=== PATIENT | male | born 1970 | race African-American/Black ===

== ENCOUNTER 2017-10-31 16:04 | Emergency (ER) | payer BC ==
[2017-10-31] MEDS ORDERED: NA CHLORIDE 0.9% 1,000 ML ONE (16:27)
[2017-10-31 16:44] LABS: Protime INR 0.94
[2017-10-31 16:45] LABS: Absolute Lymphocytes (CBC) 0.5 K/uL (0.7-4.9); Absolute Monocytes 0.4 K/uL (0.1-1.3); Absolute Neutrophil 7.2 K/uL (1.8-8.0); Basophils % 0.3 % (0-1.3); Eosinophils % 0.4 % (0-4.4); Hematocrit 46.5 % (39.6-49.0); Lymphocytes % 5.9 % (15.3-44.8); MCH 33.3 pg (27.0-35.0); MCV 98.9 fL (80-100); MPV 10.3 fL (7.6-11.3); Monocytes % 4.5 % (3.3-12.3)
--- NOTE | 2017-10-31 16:54 | RAD REPORT ---
EXAM DESCRIPTION: CT - Head Brain Wo Cont - 10/31/2017 4:46 pm CLINICAL HISTORY: Syncope COMPARISON: None. TECHNIQUE: Axial 5 mm thick images of the head were obtained without IV contrast. All CT scans are performed using dose optimization technique as appropriate and may include automated exposure control or mA/KV adjustment according to patient size. FINDINGS: No intracranial hemorrhage, mass, edema or shift of mid-line structures. No acute infarcti on changes seen. No abnormal extra-axial fluid collections. Ventricles are normal. Mastoid air cells and visualized portions of the paranasal sinuses are clear. No acute bony findings. IMPRESSION: Negative non-contrast CT head examination.
--- NOTE | 2017-10-31 16:55 | RAD REPORT ---
EXAM DESCRIPTION: RAD - Chest Single View - 10/31/2017 4:44 pm CLINICAL HISTORY: Syncope, fall, chest injury COMPARISON: None. TECHNIQUE: AP portable chest image was obtained 1633 hours . FINDINGS: Lungs are clear. No cardiomegaly or other suspicious heart finding. Vasculature is normal. Trachea is midline. No measurable pleural effusion and no pneumothorax. No gross bony abnormality se en. No acute aortic findings suspected. IMPRESSION: No acute cardiopulmonary process.
[2017-10-31 17:00] LABS: Albumin 4.4 g/dL (3.2-5.5); Bilirubin Direct 0.3 mg/dL (0-0.2); Bilirubin Total 2.7 mg/dL (0.3-1.2); Magnesium 1.6 mg/dL (1.8-2.5); Protein, Total 7.1 g/dL (6.0-8.3)
[2017-10-31] MEDS ORDERED: MAGNESIUM SULFATE 1 gm IVPB 1 GM/100 ML BAG IV ONE (17:06)
--- NOTE | 2017-10-31 17:47 | EDPHYS ---
Physician Documentation [facility] Name: Jermaine Price Age: 47 yrs Sex: Male : 1970 Arrival Date: 10/31/2017 Time: 16:05 Bed 4 Private MD: ED Physician Rogelio Wellington HPI: 10/31 16:57 This 47 yrs old Male presents to ER via Ambulatory with complaints of Syncope. jr8 16:57 The patient has experienced syncope, collapsed. Onset: The symptoms/episode jr8 began/occurred acutely, today. Duration: This was a single episode. Context: the episode(s) was witnessed, by a friend, occurred hospital, occurred while the patient was standing, Just prior to the episode the patient experienced lightheadedness. Associated injury: The patient did not suffer any apparent associated injury. Associated signs and symptoms: The patient has no apparent associated signs or symptoms. Current symptoms: Currently, the patient is not experiencing any symptoms, the patient feels back to baseline, no decreased level of consciousness, no confusion, no dysphasia, no headache, no paralysis, no visual changes. The patient has not experienced similar symptoms in the past. The patient has not recently seen a physician. Patient stated that he was shadowing another Physician that the hospital today. Stated that while standing started to feel lightheaded. Was going to reach for door and collapsed. Stated that he fell backward per staff and hit head. Patient denied chest pain, shortness of breath, numbness, tingling, or weakness prior to or after episode. Feels back to baseline now . Historical: - Allergies: 16:09 NKA; iw - Home Meds: 16:09 None [Active]; iw - PMHx: 16:09 None; iw - PSHx: 16:09 None; iw - Immunization history:: Adult Immunizations up to date. - Social history:: Smoking status: Patient/guardian denies using tobacco, never smoked. ROS: 16:57 Eyes: Negative for injury, pain, redness, and discharge, ENT: Negative for injury, jr8 pain, and discharge, Neck: Negative for injury, pain, and swelling, Cardiovascular: Negative for chest pain, palpitations, and edema, Respiratory: Negative for shortness of breath, cough, wheezing, and pleuritic chest pain, Abdomen/GI: Negative for abdominal pain, nausea, vomiting, diarrhea, and constipation, Back: Negative for injury and pain, MS/Extremity: Negative for injury and deformity, Skin: Negative for injury, rash, and discoloration. 16:57 Neuro: Positive for syncope. Exam: 16:57 Head/Face: Normocephalic, atraumatic. Eyes: Pupils equal round and reactive to light, jr8 extra-ocular motions intact. Lids and lashes normal. Conjunctiva and sclera are non-icteric and not injected. Cornea within normal limits. Periorbital areas with no swelling, redness, or edema. ENT: Nares patent. No nasal discharge, no septal abnormalities noted. Tympanic membranes are normal and external auditory canals are clear. Oropharynx with no redness, swelling, or masses, exudates, or evidence of obstruction, uvula midline. Mucous membranes moist. Neck: Trachea midline, no thyromegaly or masses palpated, and no cervical lymphadenopathy. Supple, full range of motion without nuchal rigidity, or vertebral point tenderness. No Meningismus. Cardiovascular: Regular rate and rhythm with a normal S1 and S2. No gallops, murmurs, or rubs. Normal PMI, no JVD. No pulse deficits. Respiratory: Lungs have equal breath sounds bilaterally, clear to auscultation and percussion. No rales, rhonchi or wheezes noted. No increased work of breathing, no retractions or nasal flaring. Abdomen/GI: Soft, non-tender, with normal bowel sounds. No distension or tympany. No guarding or rebound. No evidence of tenderness throughout. Back: No spinal tenderness. No costovertebral tenderness. Full range of motion. Skin: Warm, dry with normal turgor. Normal color with no rashes, no lesions, and no evidence of cellulitis. MS/ Extremity: Pulses equal, no cyanosis. Neurovascular intact. Full, normal range of motion. Neuro: Awake and alert, GCS 15, oriented to person, place, time, and situation. Cranial nerves II-XII grossly intact. Motor strength 5/5 in all extremities. Sensory grossly intact. Cerebellar exam normal. Normal gait. Vital Signs: 16:14 BP 127 / 86; Pulse 55; Resp 14; Temp 98.8(A); Pulse Ox 100% on R/A; ae1 17:05 BP 132 / 87; Pulse 64; Resp 15; Pulse Ox 100% on R/A; ae1 17:09 BP 131 / 91 Supine; Pulse 63; Resp 18; Pulse Ox 99% on R/A; ae1 17:11 BP 131 / 89 Sitting; Pulse 76; Resp 20; Pulse Ox 99% on R/A; ae1 17:13 BP 131 / 94; Pulse 78; Resp 20; Pulse Ox 96% on R/A; ae1 17:47 BP 116 / 81; Pulse 61; Resp 15; Pulse Ox 100% on R/A; ae1 MDM: 16:08 Patient medically screened. jr8 17:45 Data reviewed: vital signs, nurses notes, lab test result(s), EKG, radiologic studies, jr8 CT scan, plain films, and as a result, I will discharge patient. Data interpreted: Pulse oximetry: on room air is 96 %. Interpretation: normal. Counseling: I had a detailed discussion with the patient and/or guardian regarding: the historical points, exam findings, and any diagnostic results supporting the discharge/admit diagnosis, lab results, radiology results, the need for outpatient follow up, a communications and signals supervisor, a family practitioner, to return to the emergency department if symptoms worsen or persist or if there are any questions or concerns that arise at home. ED course: Patient has remained asymptomatic while in ED. Feels back to baseline. No significant abnormalities noted to cause syncope. Mild LVH noted on EKG which I told patient can be normal variant but that cardiology should see him and complete Echocardiogram to r/o. Patient pleased and will follow up . 17:46 Differential Diagnosis: cardiac arrhythmia, cerebrovascular accident, drug effect, jr8 emotional response, idiopathic syncope, seizure, transient ischemic attack, vasovagal episode. 10/31 16:23 Order name: Basic Metabolic Panel; Complete Time: 17:02 10/31 16:23 Order name: BNP; Complete Time: 17:05 10/31 16:23 Order name: CBC with Diff; Complete Time: 18:21 10/31 16:23 Order name: CPK; Complete Time: 17:02 10/31 16:23 Order name: LFT's; Complete Time: 17:02 10/31 16:23 Order name: Magnesium; Complete Time: 17:02 10/31 16:23 Order name: PT-INR; Complete Time: 16:49 10/31 16:23 Order name: Troponin (emerg Dept Use Only); Complete Time: 17:02 8 10/31 16:23 Order name: XRAY Chest (1 view); Complete Time: 16:57 10/31 16:23 Order name: EKG; Complete Time: 16:24 8 10/31 16:23 Order name: CT Head Brain wo Cont; Complete Time: 16:57 jr8 10/31 18:18 Order name: CBC Smear Scan; Complete Time: 18:21 EDMS 10/31 16:23 Order name: Cardiac monitoring; Complete Time: 16:32 10/31 16:23 Order name: EKG - Nurse/Tech; Complete Time: 16:32 10/31 16:23 Order name: IV Saline Lock; Complete Time: 16:32 10/31 16:23 Order name: Labs collected and sent; Complete Time: 16:32 10/31 16:23 Order name: O2 Per Protocol; Complete Time: 16:32 10/31 16:23 Order name: O2 Sat Monitoring; Complete Time: 16:32 10/31 16:23 Order name: Urine Dipstick-Ancillary (obtain specimen) 10/31 16:23 Order name: Orthostatics; Complete Time: 18:24 Administered Medications: 01:15 Drug: Magnesium Sulfate 1 grams Route: IVPB; Infused Over: 1 hrs; Site: right ae1 antecubital; 18:24 Follow up: IV Status: Completed infusion ae1 16:28 Drug: NS 0.9% 1000 ml Route: IV; Rate: 1000 ml; Site: right antecubital; ae1 18:24 Follow up: IV Status: Completed infusion ae1 Point of Care Testing: Blood Glucose: 16:18 Blood Glucose: 182 mg/dL; ae1 Ranges: Critical Glucose Levels:Adult <50 mg/dl or >400 mg/dl <40 mg/dl or >180 mg/dl Disposition: 18:26 Co-signature as Attending Physician, Rogelio Wellington MD I agree with the assessment and kdr plan of care. Disposition: 10/31/17 17:46 Discharged to Home. Impression: Syncope and collapse. - Condition is Stable. - Discharge Instructions: Syncope. - Medication Reconciliation Form, Thank You Letter, Antibiotic Education, Prescription Opioid Use form. - Follow up: Private Physician; When: 2 - 3 days; Reason: Recheck today's complaints, Continuance of care, Re-evaluation by your physician. - Problem is new. - Symptoms are resolved. Signatures: Dispatcher [employer] Rogelio Snaabria MD MD kdr Rose Guardado, RN RN iw Stuart Funez PA PA jr8 Francisco Boone RN RN ae1
--- NOTE | 2017-10-31 17:47 | ER ---
Nurse's Notes [facility] Name: Jermaine Price Age: 47 yrs Sex: Male : 1970 Arrival Date: 10/31/2017 Time: 16:05 Bed 4 Private MD: Diagnosis: Syncope and collapse Presentation: 10/31 16:05 Presenting complaint: Patient states: was doing rounds with Dr. Bello upstairs, felt iw like he was going to pass out and then fell to floor, hitting head, was witnessed, pt came around quickly, VSS, pt states he has not been drinking much water over past 24 hours. Transition of care: patient was not received from another setting of care. Onset of symptoms was October 31, 2017. Care prior to arrival: None. 16:05 Method Of Arrival: Ambulatory iw 16:05 Acuity: DUNG 3 iw Historical: - Allergies: 16:09 NKA; iw - Home Meds: 16:09 None [Active]; iw - PMHx: 16:09 None; iw - PSHx: 16:09 None; iw - Immunization history:: Adult Immunizations up to date. - Social history:: Smoking status: Patient/guardian denies using tobacco, never smoked. Screenin:33 Abuse screen: Denies threats or abuse. Nutritional screening: No deficits noted. ae1 Tuberculosis screening: No symptoms or risk factors identified. Fall Risk Fall in past 12 months (25 points). No secondary diagnosis (0 pts). IV access (20 points). Ambulatory Aid- None/Bed Rest/Nurse Assist (0 pts). Gait- Normal/Bed Rest/Wheelchair (0 pts) Mental Status- Oriented to own ability (0 pts). Assessment: 16:37 General: Appears in no apparent distress. comfortable, well groomed, Behavior is calm, ae1 cooperative. Pain: Denies pain. Neuro: Level of Consciousness is awake, alert, obeys commands, Oriented to person, place, time, situation. Cardiovascular: Heart tones S1 S2 present Patient's skin is warm and dry. Rhythm is regular. Respiratory: Airway is patent Respiratory effort is even, unlabored, Respiratory pattern is regular, symmetrical, Breath sounds are clear bilaterally. GI: No signs and/or symptoms were reported involving the gastrointestinal system. : No signs and/or symptoms were reported regarding the genitourinary system. Reports He feels "dehydrated", states he knows how much he really drinks and has not been drinking enough fluid. EENT: No signs and/or symptoms were reported regarding the EENT system. Derm: Skin is normal. Musculoskeletal: No signs and/or symptoms reported regarding the musculoskeletal system. 17:00 Reassessment: Patient appears in no apparent distress at this time. Family at bedside. ae1 Patient states feeling better. 17:53 Reassessment: Patient appears in no apparent distress at this time. Patient and/or ae1 family updated on plan of care and expected duration. Pain level reassessed. family at bedside. Patient denies pain at this time. Patient states feeling better. Vital Signs: 16:14 BP 127 / 86; Pulse 55; Resp 14; Temp 98.8(A); Pulse Ox 100% on R/A; ae1 17:05 BP 132 / 87; Pulse 64; Resp 15; Pulse Ox 100% on R/A; ae1 17:09 BP 131 / 91 Supine; Pulse 63; Resp 18; Pulse Ox 99% on R/A; ae1 17:11 BP 131 / 89 Sitting; Pulse 76; Resp 20; Pulse Ox 99% on R/A; ae1 17:13 BP 131 / 94; Pulse 78; Resp 20; Pulse Ox 96% on R/A; ae1 17:47 BP 116 / 81; Pulse 61; Resp 15; Pulse Ox 100% on R/A; ae1 ED Course: 16:05 Patient arrived in ED. iw 16:08 [facility] jr8 16:08 Rogelio Wellington MD is Attending Physician. jr8 16:09 Triage completed. iw 16:13 Francisco Boone, JOHN is Primary Nurse. ae1 16:14 Arm band placed on right wrist. ae1 16:14 Placed in gown. Bed in low position. Call light in reach. Side rails up X 1. Cardiac ae1 monitor on. Pulse ox on. NIBP on. Warm blanket given. 16:32 Inserted saline lock: 22 gauge in right antecubital area, using aseptic technique. ae1 ,using aseptic technique. By Krishna GRAIN BLENDER Blood collected. 16:41 XRAY Chest (1 view) In Process Unspecified. EDMS 16:46 CT Head Brain wo Cont In Process Unspecified. EDMS 18:23 No provider procedures requiring assistance completed. IV discontinued, intact, ae1 bleeding controlled, No redness/swelling at site. Pressure dressing applied. Administered Medications: 01:15 Drug: Magnesium Sulfate 1 grams Route: IVPB; Infused Over: 1 hrs; Site: right ae1 antecubital; 18:24 Follow up: IV Status: Completed infusion ae1 16:28 Drug: NS 0.9% 1000 ml Route: IV; Rate: 1000 ml; Site: right antecubital; ae1 18:24 Follow up: IV Status: Completed infusion ae1 Point of Care Testing: Blood Glucose: 16:18 Blood Glucose: 182 mg/dL; ae1 Ranges: Outcome: 17:46 Discharge ordered by . gaudencio 18:23 Discharged to home via wheelchair, with family. ae1 18:23 Condition: stable 18:23 Discharge instructions given to patient, Instructed on discharge instructions, follow up and referral plans. Demonstrated understanding of instructions. 18:24 Patient left the ED. ae1 Addendum: 11/03/2017 12:49 Addendum: Other 1 gram Magnesium Sulfate IVPB was administered at 1720 and infused over a e1 1 hour. Signatures: Dispatcher [employer] Rose Gutiérrez RN RN iw Roszak, Josh, PA PA jr8 Francisco Boone RN RN ae1
[2017-10-31 18:18] LABS: Blood Morphology Comment NOT SEEN (NOT SEEN); Platelet Estimate ADEQ; Urine White Blood Cell Casts OK
[2017-10-31 18:19] LABS: Platelets, Giant 1
--- NOTE | 2017-11-01 22:36 | EKG ---
Test Date: 2017-10-31 Test Time: 16:24:56 Behavioral Health Care Coordinator: HARJINDER MEASUREMENT RESULTS: Intervals: Rate: 48 MN: 142 QRSD: 82 QT: 426 QTc: 380 [place]: P: 35 MN: 142 QRS: 64 T: 47 INTERPRETIVE STATEMENTS: Sinus bradycardia Minimal voltage criteria for LVH, may be normal variant Borderline ECG No previous ECG available for comparison Electronically Signed On 11-01-17 22:35:57 CDT by Tim Ace
== END 2017-10-31 18:24 | disposition home or self-care (01) ==
LOC: ER 16:04
DX: R55 Syncope and collapse (principal); W18.39XA Other fall on same level, initial encounter; Y93.89 Activity, other specified; Y92.239 Unspecified place in hospital as the place of occurrence of the external cause
CPT/HCPCS: 36415; 70450; 71045; 80048; 80076; 82550; 82962; 83735; 83880; 84484; 85025; 85610; 93005; 96365; 96366; 99284; J3475; J7030